=== PATIENT | male | born 1935 | race Caucasian/White ===

== ENCOUNTER 2021-10-19 10:35 | Inpatient (IN) | payer MEDICARE, BC ==
[~2021-10-19] VITALS: Ht 182.9 cm; Wt 70.3 kg
[2021-10-19 12:28] LABS: HEMOGLOBIN 16.1 gm/dl (14.0-17.5); RED BLOOD COUNT 5.41 M/UL (4.20-5.50); WHITE BLOOD COUNT 7.5 K/UL (4.5-11.0)
[2021-10-19] MEDS ORDERED: DONEPEZIL HCL5 MG PO (15:48)
[2021-10-19] MEDS ORDERED: HYDROCODON-ACE1 EAC4 PO (15:48)
[2021-10-19] MEDS ORDERED: ALLOPURINOL100 MG PO (15:48)
[2021-10-19] MEDS ORDERED: ALBUTEROL2.5 MG/3 M INH (15:48)
[2021-10-19] MEDS ORDERED: LACTULOSE10 GM/15 M PO (15:49)
[2021-10-19] MEDS ORDERED: PROAIR HFA8.5 GM INH (15:49)
[2021-10-19] MEDS ORDERED: ATORVASTATIN CA80 MG PO (15:49)
[2021-10-19] MEDS ORDERED: LEVOTHYROXINE25 MCG PO (15:50)
[2021-10-19] MEDS ORDERED: OMEPRAZOLE20 MG PO (15:50)
[2021-10-19] MEDS ORDERED: GABAPENTIN600 MG PO (15:50)
[2021-10-19] MEDS ORDERED: DIGOXIN125 MCG PO (15:51)
[2021-10-19] MEDS ORDERED: SOTALOL80 MG PO (15:51)
[2021-10-19] MEDS ORDERED: LANTUS100 UNIT/1 SQ (15:52)
[2021-10-19] MEDS ORDERED: XARELTO10 MG PO (15:52)
[2021-10-19] MEDS ORDERED: VITAMIN D325 MCG PO (15:52)
[2021-10-19] MEDS ORDERED: TRELEGY ELLIPT1 EAC1 INH (15:53)
[2021-10-19] MEDS ORDERED: MULTIVITAMIN1 EACH PO (15:53)
[2021-10-19] MEDS ORDERED: ZOMETA 4 M4 MG/100 M INJ (15:54)
[2021-10-19] MEDS ORDERED: KEYTRUDA100 MG/4 M IV (15:55)
[2021-10-20 04:46] LABS: HEMOGLOBIN 13.6 gm/dl (14.0-17.5); RED BLOOD COUNT 4.62 M/UL (4.20-5.50); WHITE BLOOD COUNT 5.4 K/UL (4.5-11.0)
[2021-10-20 05:35] LABS: BUN/CREATININE RATIO 25 (0-10)
[2021-10-21 07:02] LABS: HEMOGLOBIN 12.9 gm/dl (14.0-17.5); RED BLOOD COUNT 4.44 M/UL (4.20-5.50); WHITE BLOOD COUNT 4.5 K/UL (4.5-11.0)
[2021-10-21 07:50] LABS: BUN/CREATININE RATIO 17 (0-10)
[2021-10-22 06:52] LABS: HEMOGLOBIN 13.1 gm/dl (14.0-17.5); RED BLOOD COUNT 4.47 M/UL (4.20-5.50); WHITE BLOOD COUNT 4.6 K/UL (4.5-11.0)
[2021-10-22 08:04] LABS: BUN/CREATININE RATIO 13 (0-10)
[2021-10-23 07:52] LABS: RED BLOOD COUNT 4.57 M/UL (4.20-5.50); WHITE BLOOD COUNT 5.4 K/UL (4.5-11.0)
[2021-10-23 08:40] LABS: BUN/CREATININE RATIO 14 (0-10)
[2021-10-24 06:36] LABS: HEMOGLOBIN 12.9 gm/dl (14.0-17.5); RED BLOOD COUNT 4.52 M/UL (4.20-5.50); WHITE BLOOD COUNT 5.4 K/UL (4.5-11.0)
[2021-10-24 07:17] LABS: BUN/CREATININE RATIO 14 (0-10)
[2021-10-25 07:38] LABS: HEMOGLOBIN 12.9 gm/dl (14.0-17.5); RED BLOOD COUNT 4.51 M/UL (4.20-5.50); WHITE BLOOD COUNT 5.7 K/UL (4.5-11.0)
[2021-10-25 08:46] LABS: BUN/CREATININE RATIO 15 (0-10)
[2021-10-26 07:08] LABS: HEMOGLOBIN 12.5 gm/dl (14.0-17.5); RED BLOOD COUNT 4.34 M/UL (4.20-5.50); WHITE BLOOD COUNT 5.9 K/UL (4.5-11.0)
[2021-10-26 07:18] LABS: BUN/CREATININE RATIO 14 (0-10)
[2021-10-27 07:20] LABS: HEMOGLOBIN 14.6 gm/dl (14.0-17.5); RED BLOOD COUNT 4.95 M/UL (4.20-5.50); WHITE BLOOD COUNT 6.6 K/UL (4.5-11.0)
[2021-10-27 07:39] LABS: BUN/CREATININE RATIO 18 (0-10)
[2021-10-27] MEDS ORDERED: LACTULOSE10 GM/15 M PO (13:04)
[2021-10-27] MEDS ORDERED: SENNA-DOCUSATE1 EACH PO (13:04)
== END 2021-10-28 17:39 | disposition home or self-care (01) | DRG 565 ==
LOC: ER1 10:35 → CDU 14:59 → M/S 15:59 → 3 EAST 15:59 → M/S 10-20 15:42
PROVIDERS: Internal Medicine; Physician Assistant; Physician Assistant Medical; ADMIT Internal Medicine
DX: T79.6XXA Traumatic ischemia of muscle, initial encounter (principal); C34.90 Malignant neoplasm of unspecified part of unspecified bronchus or lung; C79.51 Secondary malignant neoplasm of bone; Z66 Do not resuscitate; Z20.822 Contact with and (suspected) exposure to COVID-19; C78.7 Secondary malignant neoplasm of liver and intrahepatic bile duct; N17.9 Acute kidney failure, unspecified; M51.36 Other intervertebral disc degeneration, lumbar region; R29.6 Repeated falls; I25.10 Atherosclerotic heart disease of native coronary artery without angina pectoris; I48.91 Unspecified atrial fibrillation; E11.9 Type 2 diabetes mellitus without complications; J44.9 Chronic obstructive pulmonary disease, unspecified; W18.30XA Fall on same level, unspecified, initial encounter; E83.42 Hypomagnesemia; K59.00 Constipation, unspecified; R53.81 Other malaise; Z95.1 Presence of aortocoronary bypass graft; Z79.01 Long term (current) use of anticoagulants; I25.2 Old myocardial infarction; Z82.49 Family history of ischemic heart disease and other diseases of the circulatory system
CPT/HCPCS: 0241U; 36415; 70450; 71045; 72131; 72170; 80048; 80053; 81001; 82550; 82553; 82962; 83605; 83735; 83874; 83880; 84100; 84484; 85025; 85027; 86140; 87040; 93005; 94640; 94664; 94760; 96374; 97110; 97110-GP-CQ; 97162; 97166; 97530; 97530-GP-CQ; 99285; G0378; J2543; J3475; J7030